=== PATIENT | male | born 1945 | race Caucasian/White ===

== ENCOUNTER 2023-01-15 12:55 | Outpatient (OUT) | payer OTHER, MEDICARE, SELFPAY ==
--- NOTE | 2023-01-15 13:03 | CT_ITS ---
[address] [address] Patient Name: ANKUR UNDERWOOD MRN: [id number] date: 1945 Sex: M Assigned Patient Location: CT Current Patient Location: CT Accession/Order Number: [id number] Exam Date: 01/15/2023 13:10 Report Date: 01/15/2023 13:49 At the request of: NON-STAFF PHYSICIAN Procedure: CT head/brain wo con EXAM: CT scan of the head without contrast. Dose reduction technique used: Automated exposure control and/or adjustment of the mA and/or kV according to patient size and/or use of iterative reconstruction technique. REASON FOR EXAM: Falls Frequently R29.6, Right Leg Weakness R29.898 COMPARISON: None FINDINGS: No intracranial hemorrhage, mass effect, midline shift, fractures or evidence of acute ischemic infarct. No hydrocephalus. 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 Mild generalized cerebral and cerebellar volume loss. Mild small vessel gliosis. Paranasal sinuses and mastoid air cells are clear. Remainder unremarkable. CT/CT head/brain wo con IMPRESSION: 1. No acute intracranial abnormalities. 2. Old right frontal infarct. Electronically authenticated by: NUBIA GAXIOLA Date: 01/15/2023 13:49
== END 2023-01-15 12:56 | disposition home or self-care (01) ==
LOC: CT 12:55
PROVIDERS: PCP Family Medicine
DX: R29.6 Repeated falls (principal); R29.898 Other symptoms and signs involving the musculoskeletal system; R41.3 Other amnesia
CPT/HCPCS: 70450